=== PATIENT | female | born 1975 | race Caucasian/White ===

== ENCOUNTER 2018-03-26 12:23 | Emergency (ER) | payer OTHER ==
[2018-03-26] MEDS: KETOROLAC 30 MG INJ IM (13:06)
== END 2018-03-26 15:00 | disposition home or self-care (01) ==
LOC: FTE 12:23
DX: S83.92XA Sprain of unspecified site of left knee, initial encounter (principal); S93.401A Sprain of unspecified ligament of right ankle, initial encounter; W01.0XXA Fall on same level from slipping, tripping and stumbling without subsequent striking against object, initial encounter; Y92.9 Unspecified place or not applicable
CPT/HCPCS: 73562; 73610-RT; 81025; 96372; 99284-25